=== PATIENT | male | born 1960 | race American Indian/Alaskan Native ===

== ENCOUNTER 2018-10-09 07:50 | Emergency (ER) | payer OTHER, SELFPAY ==
[2018-10-09 08:00] VITALS: BP 133/79
--- NOTE | 2018-10-09 09:27 | Emergency Department Report ---
ED Male HPI - General Chief complaint: Urogenital-Male Stated complaint: SWOLLEN TESTICLE Time Seen by Provider: 10/09/18 09:13 Source: patient Mode of arrival: Ambulatory Limitations: No Limitations - History of Present Illness Initial comments: Mr. Santiago is a very pleasant 58-year-old male with history of 3 years of testicular swelling. He was seen by oncologist and urologist in [place] without diagnosis. His urologist at the time stated "I will leave it alone.". Now he has had lung issues. He is being treated for the lung problems in the [facility]. Considering he does not have health insurance, he is on a financial aid manager plan. He came to the emergency department for a second opinion regarding his chronic testicular swelling. He plans to have insurance health insurance this month with a new job. He denies any pain. Denies weight loss. Denies any abdominal pain. He does not take any medications. He does no t have any dysuria. MD Complaint: testicle swelling -: Gradual, year(s) (3) Location: right testicle, left testicle Improves with: none Worsens with: none denies other symptoms ED Review of Systems ROS: Stated complaint: SWOLLEN TESTICLE Other details as noted in HPI Comment: All other systems reviewed and negative Constitutional: denies: fever, malaise Cardiovascular: denies: chest pain Gastrointestinal: denies: abdominal pain ED Past Medical Hx - Past Medical History Previous Medical History?: Yes Additional medical history: previous dx of testicular swelling - Surgical History Past Surgical History?: No - Social History Smoking Status: Never Smoker Other Social History: , straddle truck driver, 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 Absent: distended, tenderness, guarding, rebound - Rectal Rectal exam: Present: deferred - exam: Present: other (large global swelling of the scrotum approximately the size of 2 grapefruit erythema no tenderness) - Extremities Exam Extremities exam: Present: normal inspection - Back Exam Back exam: Present: normal inspection - Neurological Exam Neurological exam: Present: alert, oriented X3 - Psychiatric Psychiatric exam: Present: normal affect, normal mood - Skin Skin exam: Present: warm, dry, intact, normal color. Absent: rash ED Course Vital Signs 10/09/18 07:55 Temperature 98.1 F Pulse Rate 57 L Respiratory 16 Rate Blood Pressure 133/79 O2 Sat by Pulse 96 Oximetry ED Medical Decision Making - Medical Decision Making Large global swelling of the scrotum, I suspect large varicocele or hydrocele. Malignancy is a consideration. However with 3 years of symptoms and previous urological consultation, I would assume that malignancy was ruled out. He was referred to our urologist. He intends to enroll in health insurance plan this month. Critical care attestation.: If time is entered above; I have spent that time in minutes in the direct care of this critically ill patient, excluding procedure time. ED Disposition Clinical Impression: Scrotal swelling Disposition: DC-01 TO HOME OR SELFCARE Is pt being admited?: No Does the pt Need Aspirin: No Condition: Stable Additional Instructions: Please see our urologist as soon as possible. Referrals: SANKET GO MD [Staff Physician] - [facility]
== END 2018-10-09 09:47 | disposition home or self-care (01) ==
LOC: ED 07:50
DX: N50.89 Other specified disorders of the male genital organs (principal)
CPT/HCPCS: 99282

== ENCOUNTER 2019-02-13 14:28 | Emergency (ER) | payer SELFPAY ==
--- NOTE | 2019-02-13 14:41 | Emergency Department Report ---
Blank Doc - Documentation Documentation: pt presents with right foot pain and edema that began a couple of weeks ago he states he believes he got a splinter or something in the bottom of the foot no erythmea, no drainage no fever no PMHx no daily meds non smoker non drinker no drug use
[2019-02-13 14:42] VITALS: BP 129/68
--- NOTE | 2019-02-13 16:47 | XRay Report ---
PROCEDURE: XR FOOT 3+V RT TECHNIQUE: Right foot radiographs, AP, lateral, and oblique views. HISTORY: right foot pain COMPARISONS: None . FINDINGS: No fracture or dislocation. No focal osseous lesions. No radiopaque foreign body. IMPRESSION: No fracture or joint dislocation is seen . This document is electronically signed by Paulina Zuniga MD., Feb 13 2019 04:45:26 PM ET
--- NOTE | 2019-02-13 17:29 | Emergency Department Report ---
Blank Doc - Documentation Documentation: Patient left before me seeing the patient. I tried to call the patient back at the number listed but was not able to get hold of patient.
--- NOTE | 2019-02-13 17:44 | Emergency Department Report ---
- General Chief complaint: Extremity Injury, Lower Stated complaint: SWOLLEN (R) FOOT/PAIN Time Seen by Provider: 02/13/19 14:39 Source: patient Mode of arrival: Ambulatory Limitations: No Limitations - History of Present Illness Initial comments: This is a 58-year-old male nontoxic, well nourished in appearance, no acute signs of distress presents to the ED with c/o of right foot pain x years. Patient denies any injuries or trauma. Patient denies any numbness, tingling, fever, chills, nausea, vomiting, chest pain, shortness of breath, headache, stiff neck. Patient denies any joint swelling or joint redness. Patient denies decreased range of motion. Patient denies any allergies or significant past medical history. MD complaint: other -: year(s) Severity: mild Severity scale (0 -10): 3 Quality: aching Consistency: intermittent Improves with: none Worsens with: none Context: none Associated symptoms: denies other symptoms Treatments Prior to Arrival: none - Related Data Previous Rx's Medication Instructions Recorded Last Taken Type Ibuprofen [Motrin] 600 mg PO Q8H PRN #20 tablet 02/13/19 Unknown Rx Allergies Allergy/AdvReac Type Severity Reaction Status Date / Time No Known Allergies Allergy Verified 02/13/19 14:42 Abscess Boil HPI - HPI Chief Complaint: Extremity Injury, Lower Stated Complaint: SWOLLEN (R) FOOT/PAIN Time Seen by Provider: 02/13/19 14:39 Home Medications: Previous Rx's Medication Instructions Recorded Last Taken Type Ibuprofen [Motrin] 600 mg PO Q8H PRN #20 tablet 02/13/19 Unknown Rx Allergies/Adverse Reactions: Allergies Allergy/AdvReac Type Severity Reaction Status Date / Time No Known Allergies Allergy Verified 02/13/19 14:42 ED Review of Systems ROS: Stated complaint: SWOLLEN (R) FOOT/PAIN Other details as noted in HPI Constitutional: denies: chills, fever Eyes: denies: eye pain, eye discharge, vision change ENT: denies: ear pain, throat pain Respiratory: denies: cough, shortness of breath, wheezing Cardiovascular: denies: chest pain, palpitations Endocrine: no symptoms reported Gastrointestinal: denies: abdominal pain, nausea, diarrhea Genitourinary: denies: urgency, dysuria Musculoskeletal: denies: back pain, joint swelling, arthralgia Skin: denies: rash, lesions Neurological: denies: headache, weakness, paresthesias Psychiatric: denies: anxiety, depression Hematological/Lymphatic: denies: easy bleeding, easy bruising ED Past Medical Hx - Past Medical History Previous Medical History?: No Additional medical history: previous dx of testicular swelling - Surgical History Past Surgical History?: No - Social History Smoking Status: Never Smoker Substance Use Type: None - Medications Home Medications: Home Medications Medication Instructions Recorded Confirmed Last Taken Type Ibuprofen [Motrin] 600 mg PO Q8H PRN #20 tablet 02/13/19 Unknown Rx ED Physical Exam - General Limitations: No Limitations General appearance: alert, in no apparent distress - Head Head exam: Present: atraumatic, normocephalic - Neck Neck exam: Present: normal inspection, full ROM - Extremities Exam Extremities exam: Present: normal inspection, full ROM, tenderness, normal capillary refill. Absent: joint swelling - Expanded Lower Extremity Exam Right Hip exam: Present: normal inspection, full ROM. Absent: tenderness Upper Leg exam: Present: normal inspection, full ROM. Absent: tenderness, swelling Knee exam: Present: normal inspection, full ROM. Absent: tenderness, swelling Lower Leg exam: Present: normal inspection, full ROM. Absent: tenderness, swelling Ankle exam: Present: normal inspection, full ROM. Absent: tenderness, swelling Foot/Toe exam: Present: normal inspection, full ROM, tenderness. Absent: swelling, abrasion, laceration, ecchymosis, deformity, crepidus, dislocation, erythema, amputation, puncture wound, foreign body, calcaneal tenderness, tenderness at base of 5th metatarsal, nail avulsion, subungual hematoma Neuro vascular tendon exam: Present: no vascular compromise 1 - Callus noted that is tender and patient is complaining of pain here - Back Exam Back exam: Present: normal inspection, full ROM - Neurological Exam Neurological exam: Present: alert, oriented X3 - Psychiatric Psychiatric exam: Present: normal affect, normal mood - Skin Skin exam: Present: warm, dry, intact, normal color. Absent: rash ED Course Vital Signs 02/13/19 14:40 Temperature 98 F Pulse Rate 62 Respiratory 18 Rate Blood Pressure 129/68 [Right] O2 Sat by Pulse 99 Oximetry - Reevaluation(s) Reevaluation #1: 02/13/19 17:45 Patient is speaking in full sentences with no signs of distress noted. ED Medical Decision Making - Medical Decision Making This is a 58-year-old male that presents with callus to right foot. Patient is stable and was examined by me. I referred patient to an orthopedic doctor for further evaluation for possible MRI. X-ray has been obtained and dictated by the radiologist. Patient is notified of the x-ray report with noted by the patient. Patient does have normal gait with no tenderness and no joint swelling. No ecchymosis. no joint redness or swelling. Not warm to touch. No signs of cellulites present. Patient is discharged with Motrin. At time of discharge, the patient does not seem toxic or ill in appearance. No acute signs of distress noted. Patient agrees to discharge treatment plan of care. No further questions noted by the patient. Critical care attestation.: If time is entered above; I have spent that time in minutes in the direct care of this critically ill patient, excluding procedure time. ED Disposition Clinical Impression: Callus of foot Disposition: DC-01 TO HOME OR SELFCARE Is pt being admited?: No Does the pt Need Aspirin: No Condition: Stable Additional Instructions: Follow-up with a orthopedic doctor in 3-5 days or if symptoms worsen and continue return to emergency room as soon as possible. Prescriptions: Ibuprofen [Motrin] 600 mg PO Q8H PRN #20 tablet PRN Reason: Pain Ref[facility] [Primary Care Provider] - 3-5 Days PRIMARY MD JACOB [Referring] - 3-5 Days YURI MORGAN MD [Staff Physician] - 3-5 Days Forms: Work/School Release Form(ED)
== END 2019-02-13 18:18 | disposition home or self-care (01) ==
LOC: ED 14:28
DX: L84 Corns and callosities (principal)